=== PATIENT | male | born 1955 | race Two or more races ===

== ENCOUNTER 2017-06-23 11:25 | Outpatient (CLI) | payer OTHER ==
[~2017-06-23 11:25] MED LIST: ASA81 MG
== END 2017-06-23 11:35 | disposition home or self-care (01) ==
LOC: LAB 11:25 → EDBD 11:25 → LAB 11:35
DX: B34.9 Viral infection, unspecified (principal); J11.1 Influenza due to unidentified influenza virus with other respiratory manifestations